=== PATIENT | female | born 1935 | race Caucasian/White ===

== ENCOUNTER 2016-10-31 11:37 | Emergency (ER) | payer MEDICARE ==
[2016-10-31 12:04] VITALS: BP 152/57
--- NOTE | 2016-10-31 12:37 | UC ---
Shoulder Pain HPI - HPI Summary HPI Summary: Patient was using a garden saw to saw a branch. the next day had soreness in the front of the right shoulder. then is progressed to the back and neck. feels tight and sore. - History of Current Complaint Chief Complaint: UCUpperExtremity Stated Complaint: RIGHT SHOULDER/NECK PAIN Time Seen by Provider: 10/31/16 12:23 Hx Obtained From: Patient ?: No Onset/Duration: Sudden Onset, Lasting Days Timing: Constant Severity Initially: Mild Severity Currently: Moderate Character: Aching, Spasmodic Aggravating Factor(s): Lifting, Extension Associated Signs And Symptoms: Positive: Negative Related History: Dominant Hand Right - Allergies/Home Medications Allergies/Adverse Reactions: Allergies Allergy/AdvReac Type Severity Reaction Status Date / Time Amoxicillin Allergy Rash Verified 10/31/16 12:04 Amitriptyline AdvReac Diarrhea Verified 10/31/16 12:04 Home Medications: Home Medications Gabapentin CAP(*) [Neurontin 300 CAP(*)] 300 mg PO BEDTIME 10/31/16 [History Confirmed 10/31/16] PMH/Surg Hx/FS Hx/Imm Hx Previously Healthy: Yes - Surgical History Surgical History: Yes Surgery Procedure, Year, and Place: Cholecystectomy 03/22/12. BILAT ROTATOR CU[facility] - Family History Known Family History: Positive: Hypertension Negative: Cardiac Disease - Social History Alcohol Use: Occasionally Substance Use Type: None Smoking Status (MU): Never Smoked Tobacco - Immunization History Most Recent Tetanus Shot: 10/23/14 TD Review of Systems Skin: Negative Eyes: Negative ENT: Negative Respiratory: Negative Cardiovascular: Negative Gastrointestinal: Negative Genitourinary: Negative Motor: Negative Neurovascular: Negative Musculoskeletal: Arthralgia, Myalgia Neurological: Negative Psychological: Negative All Other Systems Reviewed And Are Negative: Yes Physical Exam Triage Information Reviewed: Yes Appearance: Well-Appearing, Well-Nourished, Pain Distress Vital Signs: Initial Vital Signs Temp 99.2 F 10/31/16 11:59 Pulse 80 10/31/16 11:59 Resp 16 10/31/16 11:59 BP 152/57 10/31/16 11:59 Pulse Ox 97 10/31/16 11:59 Vital Signs Reviewed: Yes Eye Exam: Normal Eyes: Positive: Conjunctiva Clear ENT Exam: Normal Dental Exam: Normal Neck exam: Normal Respiratory Exam: Normal Cardiovascular Exam: Normal Abdominal Exam: Normal Bowel Sounds: Positive: Present Musculoskeletal: Positive: Strength Intact, No Edema, ROM Limited @ - painful in extension and ext rotation Neurological Exam: Normal Psychological Exam: Normal Skin Exam: Normal Shoulder Course/Dx - Course Course Of Treatment: hx obtained, exam performed, meds reviewed, sling provided , educated on shoulder exercises. - Differential Dx/Diagnosis Differential Diagnosis/HQI/PQRI: Bursitis, Contusion, Dislocation, Fracture ( Closed), Rotator Cuff Injury, Sprain, Strain Provider Diagnoses: right pectoralis strain. shoulder pain Discharge - Discharge Plan Condition: Stable Disposition: HOME Prescriptions: Cyclobenzaprine TAB* [Flexeril 10 MG TAB*] 10 mg PO BID #8 tab Patient Education Materials: Muscle Strain (ED), Exercises for Shoulder Flexion and Extension (ED) Referrals: Ernestine Lutz MD [Primary Care Provider] - Additional Instructions: 1. Continue with the moist heat and ibuprofen as needed. 2. Do the exercises daily 3. Use the flexeril as needed for spasm and pain. 4. Follow up if not improving.
== END 2016-10-31 12:45 | disposition home or self-care (01) ==
LOC: UCCORT 11:37
DX: S29.011A Strain of muscle and tendon of front wall of thorax, initial encounter (principal); X58.XXXA Exposure to other specified factors, initial encounter; Y93.89 Activity, other specified; Y92.9 Unspecified place or not applicable; M25.511 Pain in right shoulder; Z88.1 Allergy status to other antibiotic agents; Z90.49 Acquired absence of other specified parts of digestive tract
CPT/HCPCS: 99212; G0463

== ENCOUNTER 2018-03-03 07:49 | Emergency (ER) | payer MEDICARE ==
--- OUTSIDE RECORDS SUMMARY | 2018-03-03 08:04 | XMS REPORT ---
:1935 External Reference #:[id number] Author Organization [facility] Address [address] [place] [address] Phone [phone] Care Team Providers Name Role Phone Sanjivernajoseph Ernestine Care Team Information Hog Raiser Unavailable HCP given Primary Care Physician Unavailable Payers Type Date Identification Numbers Payment Provider Subscriber Medicare Primary Effective: Policy Number: [facility] Maura Coffey [place] 1999 [id number] Services PayID: [id number] [address] [place] [address] Medigap Part B Policy Number: [id number] [facility] [place] PayID: [id number] [facility] [address] [place] [address] Medigap Part B Effective: [facility] Maur[facility] 1995 [id number] [facility] [place] PayID: [id number] [facility] [id number] [place] [address] Problems Date Description Provider Status Onset: 12/27/2016 Diarrhea Neri Blanton M.D. Active Onset: 12/27/2016 Cramp in lower leg associated with Neri Blanton M.D. Active rest Onset: 12/27/2016 Epigastric pain Neri Blanton M.D. Active Onset: 12/27/2016 Anxiety state Neri Blanton M.D. Active Family History Date Family Member(s) Problem(s) Comments : (age 69 Father due to Natural pt suspects it was from Years) Causes esophageal cancer Father Heart Problems : (age 90 Mother due to Cerebral Years) Aneurysm Mother Stroke Children 3 Siblings 2 2 sisters First Sister Parkinson's Disease w/ profound memory loss Social History Type Date Description Comments Education Highest level completed, 12th grade Marital Status Work Status 12/27/2016 Retired Cigarette Use 10/30/2017 Denies Cigarette Use Cigarette Use 10/30/2017 Never Smoked Cigarettes ETOH Use 12/27/2016 Denies alcohol use Recreational Drug Use Never Used Drugs Smoking Non Smoker Sun Exposure Uses sunscreen Seat Belt/Car Seat Seat Belt Use - Yes # Partners in a Lifetime 1 Allergies, Adverse Reactions, Alerts Date Description Reaction Status Severity Comments 12/27/2016 Amoxicillin active diarrhea 12/27/2016 Amitriptyline active racing heart 12/27/2016 Hyoscyamine active dry mouth Medications Medication Date Status Form Strength Qnty SIG Indications Ordering Provider Nortriptyline 01/31/ Active Capsules 10mg 100ca 1 Pill R19.7 Silcoff, HCL 2018 ps Nightly Neri, (30-60Min M.D. Before Bed) To Start; Inc By 1 Tab Every Week If Needed; Max 5 Pills/Night ; For Chronic Diarrhea Alendronate 12/13/ Active Tablets 70mg 14tab 1 by mouth M81.0 Silcoff, Sodium 2018 s qwk on an Neri, empty M.D. stomach. take w/ 8oz of water. don't eat anything or lie down for 30min after taking this med Shingrix 09/11/ Hx Suspension 50mcg 2unit administer Franny 2017 - Rec s 2 doses as Neri 03/10/ herminio, M.DWes 2018 per cdc guidelines Probiotic 12/26/ Active 1 by mouth Unknown 2017 every day Imodium A-D 12/26/ Active Tablets 2mg take as R19.7 Unknown 2017 directed, 1-2 tablets every day Flonase Allergy 12/26/ Active Suspension 50mcg/Act 2 sprays Unknown Relief 2017 twice a day in the spring time Multivitamin 12/26/ Active Tablets 1 by mouth Unknown Adult 2017 every day Calcium 600+D 12/26/ Active Tablets 1 daily Unknown 2016 Lorazepam 06/16/ Active Tablets 0.5mg 60tab 1/2-1 F41.9 Franny 2016 s tablet Neri, 2x/day as M.D. needed for anxiety Sertraline HCL 12/13/ Hx Tablets 100mg 90tab 1 tablet by F41.9 Franny, 2017 - s mouth every Neri, 12/29/ day for M.D. 2017 mood and chronic diarrhea Clindamycin HCL 11/06/ Hx Capsules 300mg 21cap take 1 N76.4 Jena 2017 - s capsule by Rj 11/13/ mouth every D.O. 2017 8 hours for 7 days Bactrim DS 11/02/ Hx Tablets 800-160mg 14tab 1 tab by N76.4 Franny 2017 - s mouth twice Neri, 11/06/ a day x7 M.D. 2018 days Sertraline HCL 10/30/ Hx Tablets 50mg 90tab 1/2 By F41.9 Franny 2017 - s Mouth Every Neri, 12/13/ Day For 1 M.D. 2017 Week Then 1 By Mouth Every Day; For Mood K58.0 Viberzi 02/15/2017 - Hx Tablets 75mg 60tabs 1 tab by mouth R19.7 Franny, 03/07/2017 twice a day for Jose Carlos He chronic diarrhea K58.0 Gabapentin 09/15/2016 - Hx Capsules 300mg 90caps 1 caps by R10.13 Franny, 01/17/2018 mouth every Jose Carlos He night for upper abdominal pain Immunizations CPT Code Status Date Vaccine Lot # [id number] Given 01/31/2018 Influenza Virus Vaccine, Quadrivalent, Split, [id number] Preservative Free 12562 Given 03/08/2017 Pneumococcal Immunization [id number] 15748 Given 01/31/2017 Influenza Virus Vaccine, Quadrivalent, Split, [id number] Preservative Free [id number] Given 02/08/2016 Prevnar 13 [id number] Given 05/22/1999 Pneumococcal Immunization Vital Signs Date Vital Result Comment 01/31/2018 BP Systolic 126 mmHg BP Diastolic 60 mmHg Weight 96.00 lb w/shoes 12/29/2017 BP Systolic 138 mmHg BP Diastolic 58 mmHg 12/13/2017 BP Systolic 160 mmHg manually, 161/58 electronic BP Diastolic 62 mmHg manually, 161/58 electronic Heart Rate 55 /min Height 61.75 inches 5'1.75" Weight 95.00 lb BMI (Body Mass Index) 17.5 kg/m2 11/21/2017 BP Systolic 122 mmHg BP Diastolic 60 mmHg Heart Rate 60 /min Weight 98.00 lb 11/02/2017 BP Systolic 128 mmHg BP Diastolic 72 mmHg 10/30/2017 Height 62.5 inches 5'2.50" with shoes Weight 99.00 lb with shoes BMI (Body Mass Index) 17.8 kg/m2 03/08/2017 BP Systolic 116 mmHg BP Diastolic 58 mmHg Weight 96.00 lb 02/15/2017 BP Systolic 144 mmHg BP Diastolic 58 mmHg Weight 97.00 lb 12/27/2016 BP Systolic 140 mmHg BP Diastolic 60 mmHg Heart Rate 78 /min reg Respiratory Rate 12 /min not laboured Height 61.50 inches 5'1.50" Weight 94.00 lb BMI (Body Mass Index) 17.5 kg/m2 Results Test Date Test Result H/L Range Note Comp Metabolic Panel 12/15/2017 Sodium 139 mmol/L 135-145 Potassium 3.8 mmol/L 3.5-5.0 Chloride 101 mmol/L 101-111 Co2 Carbon Dioxide 31 mmol/L 22-32 Anion Gap 7 mmol/L 2-11 Glucose 145 mg/dL High 70-100 Blood Urea Nitrogen 16 mg/dL 6-24 Creatinine 0.65 mg/dL 0.51-0.95 BUN/Creatinine Ratio 24.6 High 8-20 Calcium 8.7 mg/dL 8.6-10.3 Total Protein 6.1 g/dL Low 6.4-8.9 Albumin 4.0 g/dL 3.2-5.2 Globulin 2.1 g/dL 2-4 Albumin/Globulin Ratio 1.9 1-3 Total Bilirubin 0.70 mg/dL 0.2-1.0 Alkaline Phosphatase 53 U/L 34-104 Alt 15 U/L 7-52 Ast 22 U/L 13-39 Egfr Non- 87.3 >60 Egfr 105.6 >60 1 Laboratory test finding 12/15/2017 C Reactive Protein < 1.00 mg/L <8.01 Erythrocyte Sed Rate 12 mm/Hr 0-40 Folic Acid (Folate) > 20.00 ng/mL >3.99 Heavy Metal Blool 12/15/2017 Arsenic <1 ng/mL 0-12 2 Lead <1.0 g/dL 0.0-4.9 3 Mercury 1 ng/mL 0-9 4 Cadmium 0.3 ng/mL 0.0-4.[id number] [place] [address] Guardian First Name SHANIKA Guardian Last Name CONVERSE Home Phone [phone] Venous/Capillary Heavy Metals Venous Patient Race CAU Submitting Laboratory Phone [phone] Laboratory test finding 12/15/2017 Hemoglobin A1c (Glyco HGB) 5.3 % 4.0- 5.6 7 Protein Electrophoresis 12/15/2017 Total Protein(Pep) 6.2 g/dL 6.3 - 7.9 Albumin 3.3 g/dL 3.4-4.7 Alpha-1 Globulin 0.3 g/dL 0.1-0.3 Alpha-2 Globulin 1.0 g/dL 0.6-1.0 Beta Globulin 0.9 g/dL 0.7-1.2 Gamma Globulin 0.8 g/dL 0.6-1.6 Albumin/Globulin Ratio 1.10 Impression See Comment 8 Immunofixation See Comment 9 Laboratory test finding 12/15/2017 TSH (Thyroid Stim Horm) 3.38 mcIU/mL 0.34-5.60 Vitamin B12 373 pg/mL 180-914 10 1 Because ethnic data is not always readily available, this report includes an eGFR for both -Americans and non- Americans. The National Kidney Disease Education Program (NKDEP) does not endorse the use of the MDRD equation for patients that are not between the ages of 18 and 70, are , have extremes of body size, muscle mass, or nutritional status, or are non- or non-. According to the National Kidney Foundation, irrespective of diagnosis, the stage of the disease is based on the level of kidney function: Stage Description GFR(mL/min/1.73 m(2)) 1 Kidney damage with normal or decreased GFR 90 2 Kidney damage with mild decrease in GFR 60-89 3 Moderate decrease in GFR 30-59 4 Severe decrease in GFR 15-29 5 Kidney failure <15 (or dialysis) 2 ADDITIONAL INFORMATION This test was developed and its performance characteristics determined by [facility] in a manner consistent with CLIA requirements. This test has not been cleared or approved by the U.S. Food and Drug Administration. 3 ADDITIONAL INFORMATION Testing performed by Inductively Coupled Plasma-Mass Spectrometry (ICP-MS). This test was developed and its performance characteristics determined by [facility] in a manner consistent with CLIA requirements. This test has not been cleared or approved by the U.S. Food and Drug Administration. 4 ADDITIONAL INFORMATION This test was developed and its performance characteristics determined by [facility] in a manner consistent with CLIA requirements. This test has not been cleared or approved by the U.S. Food and Drug Administration. 5 ADDITIONAL INFORMATION This test was developed and its performance characteristics determined by [facility] in a manner consistent with CLIA requirements. This test has not been cleared or approved by the U.S. Food and Drug Administration. 6 Test Performed by: [facility] [address] [place] [address] 7 Therapeutic target for the treatment of diabetes mellitus patients is <7% HBA1C, and in selective patients <6.0%. Please refer to [place] [employer] diabetic care guidelines for further information. 8 Small abnormality in gamma fraction. See Immunofixation. Test Performed by: [place] [id number] Small monoclonal IgG kappa within the gamma fraction. Suggest repeat testing in 6-12 months if clinically indicated. Test Performed by: [address] [id number] Normal Range 180 to 914 Indeterminate Range 145 to 180 Deficient Range <145 Procedures Date CPT Code Description Status Comment 12/13/2017 14043 Dexa Bone Density Study One Or Completed More Sites Axial Skeleton 11/21/2017 57694 Electrocardiogram Complete Completed 03/27/2014 Colonoscopy Completed "The entire examined colon is normal. The examined portion of the ilium is normal" ([place]) random Bxs nrml too Encounters Type Date Location Provider CPT E/M Dx Office Visit 01/31/2018 11:30a Main Office Neri Blanton M.D. 86678 H53.8 F41.9 M81.0 R19.7 R10.13 Z71.89 Z23 Z41.8 T42.6x5D Office Visit 12/29/2017 1:45p Main Office Neri Blanton M.D. 26286 H53.8 R19.7 F41.9 Office Visit 12/13/2017 11:00a Main Office Neri Blanton M.D. 52182 Z13.820 F41.9 K58.0 R10.13 R20.2 R49.9 R13.10 M81.0 Office Visit 11/21/2017 9:40a Main Office Avinash Pickering.Oren 84906 Z01.818 F41.9 K58.0 Z79.899 I44.7 Office Visit 11/02/2017 11:25a [place] [address] N76.4 Office Visit 10/30/2017 11:30a Main Office Neri Blanton M.D. 71546 R19.7 K58.0 R10.13 F41.9 K91.5 Office Visit 03/08/2017 2:30p Main Office Neri Blanton M.D. 08090 R19.7 K58.0 M67.441 Z23 Z41.8 Office Visit 02/15/2017 2:45p Main Office Neri Blanton M.D. 79432 R19.7 K58.0 Office Visit 12/27/2016 3:30p Main Office Neri Blanton M.D. 78027 R19.7 K91.89 G47.62 R10.13 F41.9 Plan of Care Future Appointment(s):04/02/2018 1:30 pm - Neri Blanton M.D. at Main [facility]/31/2018 - Neri Blanton M.D.H53.8 Other visual disturbancesComments: Longstanding intermittent vague visual Sxs. 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 She has never been treated w/ an IBS-diarrhea specific agent. She has declined Viberzi trial (b/o low risk of pancreatitis). She did not see any benefit w/ sertraline. We discussed, given her prior w/u and non response to multiple Txs, the option of trying another SSRI or a TCA, noting it may help w/ her general anxiety (wc she notes is an issue) as well as w/ her epigastric pain and diarrhea. After reviewed R/B andS/E profile as well as time to desired effect she agreed to a trial of nortriptyline (she tried amitriptyline previously but could not tolerate it, and understands risk of same S/Es w/ nortriptyline) .Follow up:RTO 2 fwyglfW31.13 Epigastric painZ71.89 Other specified counselingComments:She asked about testing for Lyme Dz b/o her various Sxs. I advised her at length why I was opposed to this, reviewed CDC advice on Lyme testing in such cases, discussed risk of false (+) results.She is searching for a unifying Dx but I suspect she will not find one, and that given prior w/u of her Sxs and overriding anxiety, that I felt it was best to try and manage her Sxs.Z23 Encounter for immunizationComments:Encouraged flu vaccine wc was accepted. VIS provided.Z41.8 Encntr for oth proc for purpose oth than [facility] pkqcyY85.6x5D Adverse effect of antiepileptic and sed-hypntc drugs, subs
[2018-03-03 08:15] VITALS: BP 136/71
--- NOTE | 2018-03-03 08:36 | UC ---
Upper Extremity HPI - HPI Summary HPI Summary: 83 year old female with wrist concern. Intermittent left wrist pain for months. Woke up yesterday morning with worsened pain, erythema, and swelling. Pain greatly aggravated by movement. Cold, heat, and Tylenol with minimal and temporary relief. No known injury. Denies similar previous episodes. Patient is concerned for potential gout but hadn't had a normal blood uric acid level in the past. This left wrist pain has been intermittent. She denies any overuse injury or trauma. She denies numbness or tingling or weakness in her hands. [ End ] - History of Current Complaint Chief Complaint: UCUpperExtremity Stated Complaint: LEFT WRIST PAIN Time Seen by Provider: 03/03/18 08:34 Hx Obtained From: Patient Onset/Duration: Gradual Onset Pain Intensity: 2 Associated Signs And Symptoms: Positive: Swelling - Allergies/Home Medications Allergies/Adverse Reactions: Allergies Allergy/AdvReac Type Severity Reaction Status Date / Time amoxicillin Allergy Rash Verified 03/03/18 08:09 amitriptyline AdvReac Diarrhea Verified 03/03/18 08:09 Dairy AdvReac Diarrhea Uncoded 03/03/18 08:09 Home Medications: Home Medications Calcium Carbonate/Vitamin D3 [Calcium 600 + Vit D Tablet] 1 each PO DAILY [History Confirmed 03/03/18] Fluticasone NASAL SPRAY 50MCG* [Flonase NASAL SPRAY 50MCG*] 2 spray BOTH NARES DAILY PRN 03/03/18 [History Confirmed 03/03/18] L.acidoph,Paracasei, B.lactis [Probiotic] 1 each PO DAILY 03/03/18 [History Confirmed 03/03/18] LORazepam TAB(*) [Ativan 0.5 MG TAB (*)] 0.25 mg PO Q6HR PRN 03/03/18 [History Confirmed 03/03/18] Loperamide CAP* [Imodium CAP*] 2 cap PO TID PRN 03/03/18 [History Confirmed ] Vitamin THERAPEUTIC TAB* [Theragran TAB*] 1 tab PO DAILY 03/03/18 [History Confirmed 03/03/18] PMH/Surg Hx/FS Hx/Imm Hx Previously Healthy: Yes Psychological History: Anxiety - Surgical History Surgical History: Yes Surgery Procedure, Year, and Place: Cholecystectomy, 2012, [place]; Left Rotator Cuff, 2001, [place]; Right Rotator Cuff, 1990, [facility] - Family History Known Family History: Positive: Hypertension Negative: Cardiac Disease - Social History Occupation: Retired Alcohol Use: Occasionally Substance Use Type: None Smoking Status (MU): Never Smoked Tobacco - Immunization History Most Recent Tetanus Shot: 10/23/14 TD Review of Systems Motor: Decreased ROM Musculoskeletal: Arthralgia Is Patient Immunocompromised?: No All Other Systems Reviewed And Are Negative: Yes Physical Exam Triage Information Reviewed: Yes Appearance: Well-Appearing, No Pain Distress, Well-Nourished Vital Signs: Initial Vital Signs Temp 98.1 F 03/03/18 08:06 Pulse 76 03/03/18 08:06 Resp 16 03/03/18 08:06 BP 136/71 03/03/18 08:06 Pulse Ox 98 03/03/18 08:06 Vital Signs Reviewed: Yes Eyes: Positive: Conjunctiva Clear ENT: Positive: Hearing grossly normal Respiratory Exam: Normal Cardiovascular Exam: Normal Musculoskeletal Exam: Normal Musculoskeletal: Positive: Strength Intact, ROM Intact, Other: - Left wrist with mild swelling and redness with tenderness to palpation diffusely. Normal strength in the hands with normal handgrip. Peripheral pulses brisk. Capillary refill less than 3 seconds. No induration or streaking or discharge or ecchymosis present. Normal forearm and elbow exam. Neurological Exam: Normal Psychological Exam: Normal Skin Exam: Normal Upper Extremity Course/Dx - Course Course Of Treatment: Concern for potential gout flareup versus bursitis from overuse. She can tolerate anti-inflammatories she states. For Medrol Dosepak at this time. She is aware of side effects as her takes prednisone daily. If symptoms persist return for further evaluation. - Differential Dx/Diagnosis Differential Diagnosis/HQI/PQRI: Bursitis, Strain, Sprain Provider Diagnoses: left wrist bursitis. left wrist gout flare up Discharge - Sign-Out/Discharge Documenting (check all that apply): Patient Departure All imaging exams completed and their final reports reviewed: No Studies - Discharge Plan Condition: Good Disposition: HOME Prescriptions: methylPREDNISolone [Medrol Dosepak 4 MG*] 0 mg PO .SEE PRIYA INSTRUCTION #1 tab Patient Education Materials: Gout (ED) Referrals: Neri Blanton MD [Primary Care Provider] - 4 Days - Billing Disposition and Condition Condition: GOOD Disposition: Home
== END 2018-03-03 08:50 | disposition home or self-care (01) ==
LOC: UCCORT 07:49
DX: M10.032 Idiopathic gout, left wrist (principal); Z88.0 Allergy status to penicillin; Z88.8 Allergy status to other drugs, medicaments and biological substances; F41.9 Anxiety disorder, unspecified
CPT/HCPCS: 99212; G0463

== ENCOUNTER 2022-11-26 14:19 | Inpatient (IN) ==
[2022-11-26] MEDS ORDERED: NS 0.9% 1000 ml BAG 1,000 ML IV ONE (14:58)
[2022-11-26 15:35] LABS: ABS Lymphocytes 0.7 10^3/uL (1.0-4.8); ABS Monocytes 0.4 10^3/uL (0.0-0.9); ABS Neutrophils 4.9 10^3/uL (1.5-7.6); Eosinophil % 0.3 %; Hematocrit 32.3 % (35-45); Hemoglobin 10.7 g/dL (11.5-14.3); Lymphocyte % 10.9 %; Mean Corpuscular Hgb Conc 33.2 g/dL (31-36); Mean Corpuscular Volume 90.4 fL (80-97); Mean Platelet Volume 6.6 fL (7.5-11.2); Platelet Count 182 10^3/uL (150-450); Red Blood Count 3.57 10^6/uL (3.63-4.92)
[2022-11-26 15:53] LABS: ALT 13 U/L (7-52); AST 22 U/L (13-39); Albumin 3.4 g/dL (3.2-5.2); Albumin/Globulin Ratio 1.6 (1-3); Alkaline Phosphatase 47 U/L (35-149); Anion Gap 5 mmol/L (2-16); Blood Urea Nitrogen 13 mg/dL (6-24); C Reactive Protein < 1.00 mg/L (<8.01); CO2 Carbon Dioxide 27 mmol/L (22-32); Calcium 7.3 mg/dL (8.6-10.3); Chloride 108 mmol/L (101-111); Creatinine, Serum 0.59 mg/dL (0.51-0.95); Globulin 2.1 g/dL (2-4); Glucose 140 mg/dL (70-100); Lipase < 10 U/L (11.0-82.0); Magnesium 1.6 mg/dL (1.9-2.7); Potassium 3.4 mmol/L (3.5-5.0); Sodium 140 mmol/L (135-145); Total Protein 5.5 g/dL (6.4-8.9); eGFR CKD-EPI 87.2 (>60)
[2022-11-26 16:06] LABS: High Sens Troponin Baseline 45 pg/mL (<15)
[2022-11-26] MEDS ORDERED: Magnesium Sulfate 2 gm BAG 2 GM/50 ML BAG IVPB ONE (16:27)
[2022-11-26 17:11] LABS: High Sensitivity Troponin 1 Hr 161 pg/mL (<15)
[2022-11-26] MEDS ORDERED: Metoclopramide 5 MG/ML VIAL (10 mg) IV SLOW PU ONE (18:00)
[2022-11-26] MEDS ORDERED: Heparin DRIP 25,000 UNITS BAG 25,000 UNITS/500 ML BAG IV SCH (18:30)
[2022-11-26] MEDS ORDERED: Pantoprazole VIAL 40 MG VIAL IV ONE (18:31)
[2022-11-26] MEDS ORDERED: Heparin 5000 UNITS/ML 1 mL VIAL ONE (18:37)
[2022-11-26] MEDS: Heparin 5000 UNITS/ML 1 mL VIAL IV PRN (18:44)
[2022-11-26 18:52] LABS: ABS Lymphocytes 0.4 10^3/uL (1.0-4.8); ABS Monocytes 0.3 10^3/uL (0.0-0.9); ABS Neutrophils 9.7 10^3/uL (1.5-7.6); ABS Nucleated RBC 0.01 10^3/ul; Eosinophil % 0.1 %; Hematocrit 33.5 % (35-45); Hemoglobin 11.3 g/dL (11.5-14.3); Lymphocyte % 3.9 %; Mean Corpuscular Hemoglobin 30.5 pg (27-33); Mean Corpuscular Hgb Conc 33.7 g/dL (31-36); Mean Corpuscular Volume 90.3 fL (80-97); Platelet Count 230 10^3/uL (150-450); Red Blood Count 3.71 10^6/uL (3.63-4.92); Red Cell Distribution Width 13.2 % (12-17); White Blood Count 10.5 10^3/uL (3.8-11.8)
[2022-11-26 18:52] LABS: Creatinine, Serum 0.62 mg/dL (0.51-0.95); eGFR CKD-EPI 86.1 (>60)
[2022-11-26] MEDS ORDERED: Nitro 2% OINT (Nitroglycerin) 1 INCH/PAK TOPICAL ONE (19:51)
[2022-11-26] MEDS ORDERED: Nitroglycerin 0.3 mg TAB SL ONE (19:52)
[2022-11-26] MEDS ORDERED: Ondansetron 4 mg VIAL 2 MG/ML 2 ml VIAL IV PRN (21:12)
[2022-11-26] MEDS: KCL 20 MEQ/100 ML IVPREMIX 20 MEQ/100 ML BAG IV SCH (22:05)
[2022-11-26 22:09] LABS: Urine Appearance Clear; Urine Bilirubin Negative (Negative); Urine Blood 1+ (Negative); Urine Color Straw; Urine Glucose 1+(50 mg/dL) (Negative); Urine Ketones Trace (Negative); Urine Nitrite Negative (Negative); Urine Protein Negative (Negative); Urine Specific Gravity 1.008 (1.002-1.030); Urine Urobilinogen Negative (Negative)
[2022-11-26 22:26] LABS: Anion Gap 7 mmol/L (2-16); Blood Urea Nitrogen 13 mg/dL (6-24); CO2 Carbon Dioxide 29 mmol/L (22-32); Calcium 8.1 mg/dL (8.6-10.3); Chloride 102 mmol/L (101-111); Creatinine, Serum 0.61 mg/dL (0.51-0.95); Glucose 171 mg/dL (70-100); Magnesium 2.3 mg/dL (1.9-2.7); Sodium 138 mmol/L (135-145); eGFR CKD-EPI 86.5 (>60)
[2022-11-26 22:33] LABS: Urine Bacteria Absent (Absent); Urine Red Blood Cell Trace(0-2/hpf) (Absent); Urine White Blood Cell Absent (Absent)
[2022-11-27] MEDS: KCL 20 MEQ/100 ML IVPREMIX 20 MEQ/100 ML BAG IV SCH ×4 (00:02→05:46)
[2022-11-27] MEDS: POLYVINYL ALCOHOL BOTH EYES SCH ×5 (00:03→20:42)
[2022-11-27] MEDS: POVIDONE BOTH EYES SCH ×5 (00:03→20:42)
[2022-11-27 04:33] LABS: ABS Lymphocytes 0.5 10^3/uL (1.0-4.8); ABS Monocytes 0.2 10^3/uL (0.0-0.9); ABS Neutrophils 6.8 10^3/uL (1.5-7.6); ABS Nucleated RBC 0.01 10^3/ul; Hematocrit 32.7 % (35-45); Lymphocyte % 7.2 %; Mean Corpuscular Hemoglobin 30.4 pg (27-33); Mean Corpuscular Hgb Conc 33.5 g/dL (31-36); Mean Corpuscular Volume 90.8 fL (80-97); Mean Platelet Volume 6.7 fL (7.5-11.2); Nucleated Red Blood Cells % 0.1 /100 WBC (0.0-0.4); Platelet Count 215 10^3/uL (150-450); Red Cell Distribution Width 13.1 % (12-17); White Blood Count 7.5 10^3/uL (3.8-11.8)
[2022-11-27 04:51] LABS: Calcium 8.2 mg/dL (8.6-10.3); Creatinine, Serum 0.57 mg/dL (0.51-0.95); Magnesium 2.1 mg/dL (1.9-2.7); Potassium 4.7 mmol/L (3.5-5.0); eGFR CKD-EPI 87.9 (>60)
[2022-11-27] MEDS: Psyllium PAK PO SCH (05:52)
[2022-11-27] MEDS: [UNRECOGNIZED DRUG - OTHER] PO SCH ×2 (08:49→20:42)
[2022-11-27] MEDS: Calcium/Vitamin D TAB 250/125 TAB PO SCH (08:49)
[2022-11-27] MEDS: VITAMINS A C E ZINC COPPER PO SCH ×2 (08:49→20:42)
[2022-11-27] MEDS: Acetylcysteine 600mgCAP(RENAL) PO SCH ×2 (08:49→20:49)
[2022-11-27] MEDS ORDERED: CHOLESTYRAMINE 4 GM PO SCH (09:00)
[2022-11-27] MEDS ORDERED: [UNRECOGNIZED DRUG - OTHER] PO SCH (09:00)
[2022-11-27] MEDS ORDERED: ACIDOPH PARACASEI B LACTIS PO SCH (12:00)
[2022-11-27] MEDS ORDERED: VITAMIN B12 FOLIC ACID PO SCH (12:00)
[2022-11-27 18:17] LABS: HDL Cholesterol 62.8 mg/dL
[2022-11-28] MEDS: POVIDONE BOTH EYES SCH ×2 (05:24→07:43)
[2022-11-28] MEDS: Psyllium PAK PO SCH (05:24)
[2022-11-28] MEDS: POLYVINYL ALCOHOL BOTH EYES SCH ×2 (05:24→07:43)
[2022-11-28 06:03] LABS: ABS Lymphocytes 1.1 10^3/uL (1.0-4.8); ABS Monocytes 0.7 10^3/uL (0.0-0.9); ABS Neutrophils 5.7 10^3/uL (1.5-7.6); Eosinophil % 0.1 %; Hematocrit 34.1 % (35-45); Hemoglobin 11.6 g/dL (11.5-14.3); Lymphocyte % 14.2 %; Mean Corpuscular Hgb Conc 34.1 g/dL (31-36); Mean Corpuscular Volume 90.9 fL (80-97); Mean Platelet Volume 6.9 fL (7.5-11.2); Platelet Count 245 10^3/uL (150-450); Red Blood Count 3.75 10^6/uL (3.63-4.92); Red Cell Distribution Width 13.1 % (12-17); White Blood Count 7.4 10^3/uL (3.8-11.8)
[2022-11-28 06:21] LABS: Calcium 8.8 mg/dL (8.6-10.3); Creatinine, Serum 0.56 mg/dL (0.51-0.95); Magnesium 2.1 mg/dL (1.9-2.7); Potassium 4.1 mmol/L (3.5-5.0); eGFR CKD-EPI 88.3 (>60)
[2022-11-28] MEDS: Heparin 5000 UNITS/ML 1 mL VIAL IV PRN (06:38)
[2022-11-28] MEDS ORDERED: NS 0.9% 1000 ml BAG 1,000 ML IV SCH (07:00)
[2022-11-28 07:17] LABS: TSH Ultra Thyroid Stim Horm 4.4 mcIU/mL (0.34-5.60)
[2022-11-28 07:19] LABS: Free T4 1.02 ng/dL (0.61-1.12)
[2022-11-28] MEDS: Acetylcysteine 600mgCAP(RENAL) PO SCH ×2 (07:42→20:28)
[2022-11-28] MEDS: [UNRECOGNIZED DRUG - OTHER] PO SCH (07:42)
[2022-11-28] MEDS: VITAMINS A C E ZINC COPPER PO SCH (07:42)
[2022-11-28] MEDS: Calcium/Vitamin D TAB 250/125 TAB PO SCH (07:42)
[2022-11-28] MEDS: Dextran 70/Hypromellose Tears Eye Drops 15 ml BTL (for Artificials Tears) BOTH EYES SCH ×4 (09:05→23:50)
[2022-11-28] MEDS: Multivitamins/Minerals TAB PO SCH (09:05)
[2022-11-28] MEDS ORDERED: Regadenoson 0.4 MG/5 ML SYRINGE ONE (10:47)
[2022-11-28] MEDS ORDERED: Aminophylline 25 MG/ML VIAL ONE (10:47)
[2022-11-28] MEDS ORDERED: Ondansetron 4 mg VIAL 2 MG/ML 2 ml VIAL IV PRN (14:05)
[2022-11-28] MEDS ORDERED: Lidocaine 1% MPF 5 ML VIAL ONE (14:32)
[2022-11-28] MEDS: Enoxaparin 40 MG/0.4 ML SYR SUBCUT SCH (15:22)
[2022-11-28] MEDS ORDERED: Gadoteridol (CONTRAST) 279.3 MG/ML 10 ML IV ONE (22:02)
[2022-11-29] MEDS ORDERED: Iodixanol (CONTRAST) 320 MG/ML 100 ML SDV IV ONE (04:16)
[2022-11-29] MEDS ORDERED: NS 0.9% 500 ml BAG 500 ML IV ONE (05:17)
[2022-11-29] MEDS: Dextran 70/Hypromellose Tears Eye Drops 15 ml BTL (for Artificials Tears) BOTH EYES SCH ×4 (05:52→23:58)
[2022-11-29] MEDS: Psyllium PAK PO SCH (05:56)
[2022-11-29 06:31] LABS: ABS Lymphocytes 0.8 10^3/uL (1.0-4.8); ABS Monocytes 0.7 10^3/uL (0.0-0.9); ABS Neutrophils 4.6 10^3/uL (1.5-7.6); Eosinophil % 0.3 %; Hematocrit 32.3 % (35-45); Hemoglobin 11.1 g/dL (11.5-14.3); Lymphocyte % 12.8 %; Mean Corpuscular Hemoglobin 31.1 pg (27-33); Mean Corpuscular Hgb Conc 34.4 g/dL (31-36); Mean Corpuscular Volume 90.4 fL (80-97); Mean Platelet Volume 7.6 fL (7.5-11.2); Platelet Count 254 10^3/uL (150-450); Red Blood Count 3.58 10^6/uL (3.63-4.92); White Blood Count 6.2 10^3/uL (3.8-11.8)
[2022-11-29 06:49] LABS: Blood Urea Nitrogen 11 mg/dL (6-24); CO2 Carbon Dioxide 33 mmol/L (22-32); Calcium 8.1 mg/dL (8.6-10.3); Chloride 99 mmol/L (101-111); Glucose 134 mg/dL (70-100); Sodium 136 mmol/L (135-145); eGFR CKD-EPI 86.8 (>60)
[2022-11-29 06:55] LABS: Anion Gap 4 mmol/L (2-16)
[2022-11-29 07:41] LABS: Magnesium 1.9 mg/dL (1.9-2.7); Potassium Redraw 3.4 mmol/L (3.5-5.0)
[2022-11-29] MEDS ORDERED: Magnesium Sulfate 2 gm BAG 2 GM/50 ML BAG IVPB ONE (08:34)
[2022-11-29] MEDS: Multivitamins/Minerals TAB PO SCH (08:40)
[2022-11-29] MEDS: Calcium/Vitamin D TAB 250/125 TAB PO SCH (08:40)
[2022-11-29] MEDS ORDERED: Cholestyramine Resin 4 GM POWDER PO ONE (08:43)
[2022-11-29] MEDS: Potassium Chlor 20 meq TAB.ER PO SCH ×3 (09:00→16:31)
[2022-11-29] MEDS ORDERED: Potassium Phosphate IV 10 MMOL in NS 0.9% 250 ml 250 ML IVPB ONE (09:30)
[2022-11-29] MEDS: Cholestyramine Resin 4 GM POWDER PO SCH (10:06)
[2022-11-29] MEDS: Enoxaparin 40 MG/0.4 ML SYR SUBCUT SCH (14:41)
[2022-11-30 04:31] LABS: Hematocrit 32.8 % (35-45); Hemoglobin 11.1 g/dL (11.5-14.3); Mean Corpuscular Hemoglobin 30.3 pg (27-33); Mean Corpuscular Hgb Conc 33.7 g/dL (31-36); Mean Corpuscular Volume 89.8 fL (80-97); Mean Platelet Volume 6.9 fL (7.5-11.2); Platelet Count 225 10^3/uL (150-450); Red Blood Count 3.65 10^6/uL (3.63-4.92); White Blood Count 6.3 10^3/uL (3.8-11.8)
[2022-11-30 04:46] LABS: Calcium 8.6 mg/dL (8.6-10.3); Creatinine, Serum 0.54 mg/dL (0.51-0.95); Magnesium 2.2 mg/dL (1.9-2.7); Phosphorus 1.9 mg/dL (2.5-5.0); Potassium 4.1 mmol/L (3.5-5.0); eGFR CKD-EPI 89.1 (>60)
[2022-11-30] MEDS: Dextran 70/Hypromellose Tears Eye Drops 15 ml BTL (for Artificials Tears) BOTH EYES SCH ×3 (07:35→19:46)
[2022-11-30] MEDS: Calcium/Vitamin D TAB 250/125 TAB PO SCH (07:51)
[2022-11-30] MEDS: Psyllium PAK PO SCH (07:51)
[2022-11-30] MEDS: Multivitamins/Minerals TAB PO SCH (07:52)
[2022-11-30] MEDS: Cholestyramine Resin 4 GM POWDER PO SCH (07:52)
[2022-11-30] MEDS ORDERED: Midazolam 10 mg/10 ml VIAL 1 mg/ml 10 ml VIAL (10 mg) IV SLOW PU ONE (13:29)
[2022-11-30] MEDS ORDERED: fentaNYL 100 mcg/2 ml 50 MCG/ML VIAL IV SLOW PU ONE (13:29)
[2022-11-30] MEDS ORDERED: Potassium Phosphate IV 15 MMOL in NS 0.9% 250 ml 250 ML IVPB ONE (14:00)
[2022-11-30] MEDS ORDERED: Midazolam 5 mg/5 ml VIAL 1 mg/ml 5 ml VIAL (5 mg) ONE (14:43)
[2022-11-30] MEDS ORDERED: Benzocaine/Butamben/Tetracain (CETACAINE - SINGLE USE) 5 gm TOPICAL ONE (14:43)
[2022-11-30] MEDS ORDERED: fentaNYL 100 mcg/2 ml 50 MCG/ML VIAL ONE (14:43)
[2022-11-30] MEDS ORDERED: Naloxone 0.4 mg VIAL 0.4 mg/ml 1 ml VIAL ONE (14:43)
[2022-11-30] MEDS ORDERED: Flumazenil 0.5 mg/5 ml 0.1 MG/ML 5 ml VIAL ONE (14:43)
[2022-11-30] MEDS: Enoxaparin 40 MG/0.4 ML SYR SUBCUT SCH (16:59)
[2022-12-01] MEDS: Dextran 70/Hypromellose Tears Eye Drops 15 ml BTL (for Artificials Tears) BOTH EYES SCH ×4 (00:02→18:30)
[2022-12-01] MEDS: Psyllium PAK PO SCH (04:35)
[2022-12-01 04:37] LABS: ABS Eosinophils 0.1 10^3/uL (0.0-0.5); ABS Lymphocytes 1.5 10^3/uL (1.0-4.8); ABS Monocytes 0.6 10^3/uL (0.0-0.9); ABS Neutrophils 3.2 10^3/uL (1.5-7.6); ABS Nucleated RBC 0.01 10^3/ul; Eosinophil % 1.5 %; Hematocrit 31.6 % (35-45); Hemoglobin 10.7 g/dL (11.5-14.3); Lymphocyte % 27.7 %; Mean Corpuscular Hemoglobin 30.3 pg (27-33); Mean Corpuscular Volume 89.3 fL (80-97); Mean Platelet Volume 6.7 fL (7.5-11.2); Nucleated Red Blood Cells % 0.2 /100 WBC (0.0-0.4); Platelet Count 231 10^3/uL (150-450); Red Blood Count 3.54 10^6/uL (3.63-4.92); Red Cell Distribution Width 13.2 % (12-17); White Blood Count 5.3 10^3/uL (3.8-11.8)
[2022-12-01 05:23] LABS: Calcium 8.5 mg/dL (8.6-10.3); Creatinine, Serum 0.5 mg/dL (0.51-0.95); Magnesium 1.9 mg/dL (1.9-2.7); Phosphorus 3.9 mg/dL (2.5-5.0); Potassium 4.3 mmol/L (3.5-5.0); eGFR CKD-EPI 90.7 (>60)
[2022-12-01] MEDS ORDERED: Magnesium Sulfate IV 1GM/100ML 1 GM/100 ML BAG IV ONE (07:59)
[2022-12-01] MEDS: Calcium/Vitamin D TAB 250/125 TAB PO SCH (08:55)
[2022-12-01] MEDS: Cholestyramine Resin 4 GM POWDER PO SCH (08:55)
[2022-12-01] MEDS: Multivitamins/Minerals TAB PO SCH (08:55)
[2022-12-01] MEDS: Enoxaparin 40 MG/0.4 ML SYR SUBCUT SCH (18:30)
[2022-12-01 21:50] LABS: Urine Appearance Clear; Urine Bilirubin Negative (Negative); Urine Blood 1+ (Negative); Urine Color Colorless; Urine Glucose Negative (Negative); Urine Ketones Negative (Negative); Urine Nitrite Negative (Negative); Urine Protein Negative (Negative); Urine Specific Gravity 1.001 (1.002-1.030); Urine Urobilinogen Negative (Negative)
[2022-12-01 21:53] LABS: Urine Bacteria Absent (Absent); Urine Red Blood Cell Trace(0-2/hpf) (Absent); Urine White Blood Cell Trace(0-5/hpf) (Absent)
[2022-12-02] MEDS: Dextran 70/Hypromellose Tears Eye Drops 15 ml BTL (for Artificials Tears) BOTH EYES SCH ×2 (00:57→05:15)
[2022-12-02] MEDS: Psyllium PAK PO SCH (05:15)
[2022-12-02 08:13] VITALS: BP 158/86
[2022-12-02] MEDS: Multivitamins/Minerals TAB PO SCH (08:18)
[2022-12-02] MEDS: Calcium/Vitamin D TAB 250/125 TAB PO SCH (08:19)
[2022-12-02] MEDS: Cholestyramine Resin 4 GM POWDER PO SCH (08:19)
== END 2022-12-02 09:58 | disposition home or self-care (01) | DRG 41 ==
LOC: ED 14:19 → EDHOLD 21:48 → SUATTDRO 21:48 → ICU 22:57
PROVIDERS: ADMIT Internal Medicine; ATTEND Internal Medicine

== ENCOUNTER 2023-08-24 06:37 | Observation (INO) ==
[2023-08-24] MEDS ORDERED: Iohexol 300 (CONTRAST) 10 ML SDV ONE ×2 (08:03→09:18)
[2023-08-24] MEDS ORDERED: Midazolam 5 mg/5 ml VIAL 1 mg/ml 5 ml VIAL (5 mg) ONE ×2 (08:03→09:01)
[2023-08-24] MEDS ORDERED: fentaNYL 100 mcg/2 ml 50 MCG/ML VIAL ONE ×2 (08:03→09:01)
[2023-08-24] MEDS ORDERED: Lidocaine 1% VIAL 10 MG/ML 30 ML VIAL ONE ×2 (08:03→08:33)
[2023-08-24] MEDS: Clindamycin 900 MG/50 **NS BAG 900 MG/50 ML BAG IV ONE (08:35)
[2023-08-24] MEDS: fentaNYL 100 mcg/2 ml 50 MCG/ML VIAL IV SLOW PU ONE (08:53)
[2023-08-24] MEDS: NS 0.9% 1000 ml BAG 1,000 ML IV ONE (08:53)
[2023-08-24] MEDS: Midazolam 10 mg/10 ml VIAL 1 mg/ml 10 ml VIAL (10 mg) IV SLOW PU ONE (08:53)
[2023-08-24] MEDS ORDERED: Dextran 70/Hypromellose Tears Eye Drops 15 ml BTL (for Artificials Tears) BOTH EYES PRN (12:38)
[2023-08-24] MEDS: Clindamycin 300 MG/D5W BAG 300 MG/50 ML BAG IV SCH (16:06)
[2023-08-25 09:52] VITALS: BP 129/51
[2023-08-25 11:43] LABS: ABS Lymphocytes 1.2 10^3/uL (1.0-4.8); ABS Monocytes 0.8 10^3/uL (0.0-0.9); ABS Neutrophils 3.4 10^3/uL (1.5-7.6); ABS Nucleated RBC 0.01 10^3/ul; Eosinophil % 0.7 %; Hematocrit 31.5 % (35-45); Hemoglobin 10.6 g/dL (11.5-14.3); Lymphocyte % 22.6 %; Mean Corpuscular Hemoglobin 30.2 pg (27-33); Mean Corpuscular Hgb Conc 33.7 g/dL (31-36); Mean Corpuscular Volume 89.6 fL (80-97); Mean Platelet Volume 7.1 fL (7.5-11.2); Nucleated Red Blood Cells % 0.1 %/100WBC (0.0-0.8); Platelet Count 180 10^3/uL (150-450); Red Blood Count 3.52 10^6/uL (3.63-4.92); Red Cell Distribution Width 14.1 % (12-17); White Blood Count 5.5 10^3/uL (3.8-11.8)
== END 2023-08-25 14:15 | disposition home health service (06) ==
LOC: CHICATH 06:37 → MEDTELE 06:37
PROVIDERS: ADMIT Specialist; ATTEND Specialist